=== PATIENT | female | born 1960 | race African-American/Black ===

== ENCOUNTER 2019-05-20 12:53 | Outpatient (CLI) | payer BC ==
--- NOTE | 2019-05-20 13:22 | RAD ---
2 views right hip: 05/20/2019 COMPARISON: None HISTORY: Hip pain FINDINGS: There is mild superior joint space narrowing. No displaced fracture or evidence of dislocat ion. IMPRESSION: No acute osseous abnormality.
--- NOTE | 2019-05-20 13:23 | RAD ---
2 views left hip: 05/20/2019 COMPARISON: None HISTORY: Left hip pain FINDINGS: No fracture or dislocation. No radiopaque foreign body or subcutaneous gas. IMPRESSION: No acute findings.
== END 2019-05-20 12:54 | disposition home or self-care (01) ==
LOC: BICRAD 12:53
PROVIDERS: ATTEND Internal Medicine Rheumatology
DX: M25.551 Pain in right hip (principal); M25.552 Pain in left hip